=== PATIENT | female | born 1965 | race Caucasian/White ===

== ENCOUNTER 2020-02-25 23:01 | Emergency (ER) | payer OTHER ==
--- NOTE | 2020-02-25 23:45 | EDM.PDOC ---
ED HPI GENERAL MEDICAL PROBLEM - General Chief Complaint: ENT Problem Stated Complaint: NOSE BLEEDS Time Seen by Provider: 02/25/20 23:29 Source of Information: Reports: Patient, RN Notes Reviewed - History of Present Illness INITIAL COMMENTS - FREE TEXT/NARRATIVE: 54 yr old female has been fighting nose bleeds off and on for about the past week. Had severe gushing R sided bleed this evening that "would not stop at home" but now stopped on arrival to ED. Has not had much trouble with nose bleeds in the past. Has not been otherwise ill. Bilateral Face/Facial Pain Score (Numeric/FACES): 1 - Related Data Allergies Allergy/AdvReac Type Severity Reaction Status Date / Time No Known Allergies Allergy Verified 02/25/20 23:13 Home Meds: Home Meds . [No Known Home Meds] 02/25/20 [History] Past Medical History Cardiovascular History: Reports: Hypertension Psychiatric History: Reports: Depression Social & Family History - Tobacco Use Smoking Status *Q: Never Smoker - Caffeine Use Caffeine Use: Reports: Coffee - Recreational Drug Use Recreational Drug Use: No ED ROS ENT - Review of Systems Review Of Systems: See Below Constitutional: Denies: Fever, Chills HEENT: Reports: Nosebleed Respiratory: Denies: Shortness of Breath Cardiovascular: Denies: Chest Pain GI/Abdominal: Denies: Abdominal Pain, Nausea, Vomiting Musculoskeletal: Reports: No Symptoms Skin: Reports: No Symptoms. Denies: Rash ED EXAM, ENT - Physical Exam Exam: See Below General Appearance: Alert, No Apparent Distress Eye Exam: Bilateral Eye: PERRL Nose: Other (raised area R lower septum suggestive for site of prior bleeding) . No: Active Bleeding Mouth/Throat: Normal Inspection, Other (no blood) Neck: Supple Respiratory/Chest: No Respiratory Distress, Lungs Clear, Normal Breath Sounds Cardiovascular: Regular Rate, Rhythm Extremities: Normal Inspection, Normal Range of Motion Neurological: Alert, Oriented, No Motor/Sensory Deficits Skin: Warm, Dry, Normal Color ED ENT PROCEDURES - Epistaxis Procedure Indication: Epistaxis Site of bleeding: Right Nare Topical Meds: Topical Cocaine Chemical cautery: Silver Nitrate Topical Complications: No (slight oozing at time of cautery, controlled with cautery, no further bleeding) Course - Vital Signs Last Recorded V/S: Last Vital Signs Temp 98.7 F 02/25/20 23:08 Pulse 85 02/25/20 23:08 Resp 20 02/25/20 23:08 BP 148/91 H 02/25/20 23:08 Pulse Ox 98 02/25/20 23:08 - Orders/Labs/Meds Meds: Medications Discontinued Medications Generic Name Dose Route Start Last Admin Trade Name Lacey PRN Reason Stop Dose Admin Cocaine HCl 4 ml 02/25/20 23:39 02/25/20 23:45 Cocaine Hcl TOP 02/25/20 23:40 4 ml ONETIME ONE Administration Departure - Departure Time of Disposition: 00:35 Disposition: Home, Self-Care 01 Condition: Fair Clinical Impression: Epistaxis - Discharge Information Instructions: Nosebleed, [id number] Referrals: PCP,None [Primary Care Provider] - Forms: ED Department Discharge Additional Instructions: vaseline to distal nose 2 to 3 times daily, pressure if needed for any further bleeding. Return to ED if needed for bleeding that you cannot control or stop with pressure up to 20 0r 30 minutes. Sepsis Event Note - Evaluation Sepsis Screening Result: No Definite Risk - Focused Exam Date Exam was Performed: 02/26/20 Time Exam was Performed: 19:41
== END 2020-02-26 00:50 | disposition home or self-care (01) ==
LOC: JD.ED 23:01
DX: R04.0 Epistaxis (principal); I10 Essential (primary) hypertension
CPT/HCPCS: 30901; 99282; 99283-25

== ENCOUNTER 2021-10-22 11:58 | Emergency (ER) | payer OTHER ==
--- NOTE | 2021-10-22 12:50 | EDM.PDOC ---
ED HPI GENERAL MEDICAL PROBLEM - General Chief Complaint: Gastrointestinal Problem Stated Complaint: RECTAL BLEEDING Time Seen by Provider: 10/22/21 12:13 Source of Information: Reports: Patient, RN Notes Reviewed - History of Present Illness INITIAL COMMENTS - FREE TEXT/NARRATIVE: 56 yr old female has had rectal bleeding for aobut 5 to 6 hrs this morning. Has not been severe but has been persistent. Slow oozing with occasional clots. Has felt like there is a hermorrhoid for the last few days. Has not a BM for about 5 days which is not unusual for her. Not on any current blood thinners. No abd pain, nausea or vomiting. Lower Abdomen Pain Score (Numeric/FACES): 2 - Related Data Allergies Allergy/AdvReac Type Severity Reaction Status Date / Time No Known Allergies Allergy Verified 10/22/21 12:15 Home Meds: Home Meds Levothyroxine Sodium [Levothyroxine] 137 mcg 10/22/21 [History] Past Medical History Cardiovascular History: Reports: Hypertension Psychiatric History: Reports: Depression Endocrine/Metabolic History: Reports: Hyperthyroidism Social & Family History - Caffeine Use Caffeine Use: Reports: Coffee ED ROS GENERAL - Review of Systems Review Of Systems: See Below Constitutional: Denies: Fever, Chills Respiratory: Denies: Shortness of Breath Cardiovascular: Denies: Chest Pain GI/Abdominal: Denies: Abdominal Pain, Bloody Stool, Nausea, Vomiting : Reports: No Symptoms Musculoskeletal: Reports: No Symptoms Skin: Reports: No Symptoms Neurological: Reports: No Symptoms ED EXAM, GI/ABD - Physical Exam Exam: See Below General Appearance: Alert, No Apparent Distress Head: Atraumatic Neck: Supple Respiratory/Chest: No Respiratory Distress, Lungs Clear, Normal Breath Sounds Cardiovascular: Regular Rate, Rhythm GI/Abdominal Exam: Soft, Non-Tender Rectal (Female) Exam: Other (kidney galeano sized external hermorrhoid, with very slight oozing of blood at time of exam. No other hermohoids visible or palpable. No bleeding from the rectum. No other unusual swelling or tenderness. ) Extremities: Normal Inspection Neurological: Alert, No Motor/Sensory Deficits Skin Exam: Warm, Dry, Normal Color Course - Vital Signs Last Recorded V/S: Last Vital Signs Temp 98.9 F 10/22/21 12:09 Pulse 87 10/22/21 12:09 Resp 18 10/22/21 12:09 BP 172/103 H 10/22/21 12:09 Pulse Ox 98 10/22/21 12:09 - Re-Assessments/Exams Free Text/Narrative Re-Assessment/Exam: 10/22/21 13:24 Pt is bleeding from a moderately large external hemorrhoid as noted on exam. Discharge instr. as documented. Departure - Departure Time of Disposition: 12:47 Disposition: Home, Self-Care 01 Condition: Fair Clinical Impression: Rectal bleeding Hemorrhoid Qualifiers: Hemorrhoid type: unspecified Qualified Code(s): K64.9 - Unspecified hemorrhoids - Discharge Information Instructions: Hemorrhoids, [id number], Rectal Bleeding, [id number] Referrals: PCP,Not In Area [Primary Care Provider] - Forms: ED Department Discharge Additional Instructions: Preparation h suppository twice daily, use part of that medication for external application 3 to 4 times daily. Drink plenty of water to maintain hydration. Stool softener once or twice daily, miralax once daily. Warm soaks in the bathtub 3 to 4 times daily as best you can. Follow up clinic if this does not resolve/get a lot better over the next 3 to 4 days as expected. Return to ED as needed if symptoms worsening in any way. Sepsis Event Note (ED) - Evaluation Sepsis Screening Result: No Definite Risk - Focused Exam Vital Signs: Vital Signs Temp Pulse Resp BP Pulse Ox 10/22/21 12:09 98.9 F 87 18 172/103 H 98
== END 2021-10-22 13:00 | disposition home or self-care (01) ==
LOC: JD.ED 11:58
DX: K62.5 Hemorrhage of anus and rectum (principal); K64.9 Unspecified hemorrhoids; E03.9 Hypothyroidism, unspecified; I10 Essential (primary) hypertension; Z79.899 Other long term (current) drug therapy
CPT/HCPCS: 99283